=== PATIENT | male | born 1985 | race Caucasian/White ===

== ENCOUNTER 2017-04-13 11:42 | Day surgery (SDC) | payer BC, OTHER ==
[~2017-04-13] VITALS: Ht 172.7 cm; Wt 87.0 kg
== END 2017-04-13 15:30 | disposition home or self-care (01) ==
LOC: RAD.S 11:42 → EDSTATUS 13:00 → RAD.S 15:30
PROC: 0B9K3ZZ Drainage of Right Lung, Percutaneous Approach (ICD-10-PCS; principal; 2017-04-13)
DX: J98.4 Other disorders of lung (principal)

== ENCOUNTER → 2017-04-16 | Outpatient (CLI) | payer BC, OTHER | END | disposition home or self-care (01) | LOC: RAD.S 04-15 10:00 | DX: J98.4 Other disorders of lung (principal); J93.9 Pneumothorax, unspecified ==